=== PATIENT | female | born 1975 | race Caucasian/White ===

== ENCOUNTER 2021-09-13 12:23 | Emergency (ER) | payer OTHER ==
[2021-09-13 12:42] VITALS: BP 140/80; PULSE 89
[2021-09-13] MEDS ORDERED: Ondansetron 4 MG Tab.DIS PO ONE (13:12)
--- NOTE | 2021-09-13 13:43 | EDM.PDOC ---
ED HPI GENERAL MEDICAL PROBLEM - General Chief Complaint: General Stated Complaint: NAS[place], LIGHTHEADED Time Seen by Provider: 09/13/21 13:25 Source of Information: Reports: Patient, Old Records, RN History Limitations: Reports: No Limitations - History of Present Illness INITIAL COMMENTS - FREE TEXT/NARRATIVE: 45 yo female got light-headed and a bit sweaty and mildly nauseous around mid day today. She had breakfast, but not yet lunch. This past week here HCTZ was increased from 25 mg to 50 mg daily for HTN. No recent illness, no black or bloody stool, has not vomited. Thinks urine looks a little dark. Denies CP. Was cutting vegetables with her knees locked at the time of her sx's. Onset: Today, Sudden Onset Date: 09/13/21 Duration: Minutes:, Resolved Prior to Arrival Location: Reports: Generalized Quality: Reports: Other (no pain) Severity: Moderate Improves with: Reports: Other (time/ lying down) Worsens with: Reports: Other (? standing) Context: Reports: Other (See HPI) Associated Symptoms: Reports: Diaphoresis (briefly slightly clammy), Nausea/Vomiting (no vomiting), Other (light-headed) Treatments [employer]: Reports: Other (see below) (none) Right Posterior Knee Pain Score (Numeric/FACES): 3 - Related Data Allergies Allergy/AdvReac Type Severity Reaction Status Date / Time eggs AdvReac Abdominal Uncoded 09/13/21 13:07 Cramps Home Meds: Home Meds Losartan [Cozaar] 100 mg PO DAILY 04/21/14 [History] hydroCHLOROthiazide [Hydrochlorothiazide] 50 mg PO DAILY 09/13/21 [History] Past Medical History Cardiovascular History: Reports: Hypertension Respiratory History: Reports: None Gastrointestinal History: Reports: Cholelithiasis Genitourinary History: Reports: UTI, Recurrent, Other (See Below) Other Genitourinary History: polycystic kidney disease Musculoskeletal History: Reports: Arthritis Neurological History: Reports: None Psychiatric History: Reports: None Endocrine/Metabolic History: Reports: None Hematologic History: Reports: None Immunologic History: Reports: None Oncologic (Cancer) History: Reports: None Dermatologic History: Reports: None - Infectious Disease History Infectious Disease History: Reports: Chicken Pox - Past Surgical History HEENT Surgical History: Reports: Adenoidectomy, Tonsillectomy Cardiovascular Surgical History: Reports: None GI Surgical History: Reports: Cholecystectomy Female Surgical History: Reports: None Musculoskeletal Surgical History: Reports: None Social & Family History - Tobacco Use Years of Tobacco use: 20 - Caffeine Use Caffeine Use: Reports: Coffee ED ROS GENERAL - Review of Systems Review Of Systems: See Below Constitutional: Reports: Diaphoresis (slight, transient) HEENT: Reports: No Symptoms Respiratory: Reports: No Symptoms Cardiovascular: Reports: Lightheadedness (transiently) Endocrine: Reports: No Symptoms GI/Abdominal: Reports: Nausea (mostly gone). Denies: Black Stool, Bloody Stool, Diarrhea, Hematemesis, Melena, Vomiting : Reports: No Symptoms Musculoskeletal: Reports: No Symptoms Skin: Reports: No Symptoms Neurological: Reports: No Symptoms Psychiatric: Reports: No Symptoms ED EXAM, GENERAL - Physical Exam Exam: See Below Exam Limited By: No Limitations General Appearance: Alert, WD/WN, No Apparent Distress Eye Exam: Bilateral Eye: Normal Inspection Ears: Normal External Exam, Normal Canal, Hearing Grossly Normal Ear Exam: Bilateral Ear: Auricle Normal, Canal Normal Nose: Normal Inspection, No Blood Throat/Mouth: Normal Inspection, Normal Lips, Normal Oropharynx, Normal Voice, No Airway Compromise, Other (oral mucosa slightly dry) Head: Atraumatic, Normocephalic Neck: Normal Inspection Respiratory/Chest: No Respiratory Distress, Lungs Clear, Normal Breath Sounds, No Accessory Muscle Use Cardiovascular: Regular Rate, Rhythm, No Edema GI/Abdominal: Soft, Non-Tender, No Distention. No: Distended Back Exam: Normal Inspection. No: CVA Tenderness (R), CVA Tenderness (L) Extremities: Normal Inspection, Normal Range of Motion, Non-Tender, No Pedal Edema Neurological: Alert, Oriented, CN II-XII Intact, Normal Cognition, No Motor/Sensory Deficits Psychiatric: Normal Affect, Normal Mood Skin Exam: Warm, Dry, Intact, Normal Color, No Rash Course - Vital Signs Last Recorded V/S: Last Vital Signs Temp 36.6 C 09/13/21 13:03 Pulse 89 09/13/21 13:03 Resp 15 09/13/21 13:03 BP 140/80 09/13/21 13:03 Pulse Ox 97 09/13/21 13:03 Orthostatic Blood Pressure [ 147/89 Standing] Orthostatic Blood Pressure [ 154/85 Sitting] Orthostatic Blood Pressure [ 141/81 Supine] - Orders/Labs/Meds Orders: Active Orders 24 hr Category Date Time Status Orthostatic Vital Signs [RC] ASDIRECTED Care 09/13/21 13:13 Active Labs: Laboratory Tests 09/13/21 09/13/21 Range/Units 13:20 13:44 Sodium 139 L (140-148) mmol/L Potassium 3.3 L (3.6-5.2) mmol/L Chloride 101 (100-108) mmol/L Carbon Dioxide 28 (21-32) mmol/L Anion Gap 13.3 (5.0-14.0) mmol/L BUN 22 H D (7-18) mg/dL Creatinine 1.5 H (0.6-1.0) mg/dL Est Cr Clr Drug Dosing 41.72 mL/min Estimated GFR (MDRD) 37 L (>60) Glucose 116 H (74-106) mg/dL Calcium 9.2 (8.5-10.1) mg/dL Magnesium 1.8 (1.8-2.4) mg/dL Meds: Medications Discontinued Medications Generic Name Dose Route Start Last Admin Trade Name Freq PRN Reason Stop Dose Admin Ondansetron HCl 4 mg 09/13/21 13:12 09/13/21 13:38 Ondansetron 4 Mg Tab.Dis PO 09/13/21 13:13 4 mg ONETIME ONE Administration Potassium Chloride 40 meq 09/13/21 13:45 09/13/21 13:49 Potassium Chloride 20 Meq Tab.Er PO 09/13/21 13:46 40 meq ONETIME ONE Administration Departure - Departure Time of Disposition: 14:10 Disposition: Home, Self-Care 01 Condition: Good Clinical Impression: Hypokalemia, Vasovagal episode - Discharge Information *PRESCRIPTION DRUG MONITORING PROGRAM REVIEWED*: Not Applicable *COPY OF PRESCRIPTION DRUG MONITORING REPORT IN PATIENT ANISHA: Not Applicable Instructions: Near-Syncope, [id number], Hypokalemia Referrals: Robert Archer MD [Primary Care Provider] - Forms: ED Department Discharge Additional Instructions: Drink more fluids. Eat more potassium rich foods. Share your labs with your provider. Avoid standing for a prolonged period with your knees locked. Return as needed. Sepsis Event Note (ED) - Evaluation Sepsis Screening Result: No Definite Risk - Focused Exam Vital Signs: Vital Signs Temp Pulse Resp BP Pulse Ox 09/13/21 13:03 36.6 C 89 15 140/80 97 09/13/21 12:39 36.6 C 89 15 140/80 97 - My Orders Last 24 Hours: My Active Orders 09/13/21 13:13 Orthostatic Vital Signs [RC] ASDIRECTED - Assessment/Plan Last 24 Hours: My Active Orders 09/13/21 13:13 Orthostatic Vital Signs [RC] ASDIRECTED
[2021-09-13] MEDS ORDERED: Potassium Chloride 20 MEQ Tab.ER PO ONE (13:45)
== END 2021-09-13 14:18 | disposition home or self-care (01) ==
LOC: JP.ED 12:23
DX: E87.6 Hypokalemia (principal); I10 Essential (primary) hypertension; F17.210 Nicotine dependence, cigarettes, uncomplicated; Z91.012 Allergy to eggs; Z90.49 Acquired absence of other specified parts of digestive tract
CPT/HCPCS: 36415; 80048; 83735; 99284; A9270